=== PATIENT | female | born 1970 | race Two or more races ===

== ENCOUNTER 2024-12-19 20:52 | Emergency (ER) | payer OTHER ==
[~2024-12-19] VITALS: Ht 165.1 cm; Wt 68.0 kg
[2024-12-19] MEDS ORDERED: ATOR20TA PO (21:07)
[2024-12-19] MEDS ORDERED: AZIT250T PO (22:16)
[2024-12-19] MEDS ORDERED: BENZ-13 PO (22:16)
[2024-12-19] MEDS ORDERED: AZITHROMYCIN 250 MG TABLET ONE (22:23)
[2024-12-19] MEDS: AZITHROMYCIN 250 MG TABLET PO ONE (22:23)
[2024-12-19 22:37] VITALS: BP 134/79; TEMP 98.4; O2SAT 99
== END 2024-12-19 22:38 | disposition home or self-care (01) ==
LOC: ER 21:06
DX: R05.9 Cough, unspecified (principal); R06.02 Shortness of breath; Z20.822 Contact with and (suspected) exposure to COVID-19
CPT/HCPCS: 71045; A4606; A4663; Q0144